=== PATIENT | male | born 1970 | race Caucasian/White ===

== ENCOUNTER 2021-04-20 09:28 | Emergency (ER) | payer OTHER ==
[~2021-04-20] VITALS: Ht 188 cm; Wt 126.2 kg
--- NOTE | 2021-04-20 10:09 | PHYS DOC ---
Past History Past Medical History: No Pertinent History (ISMAEL DUKES APRN) Past Surgical History: No Surgical History (ISMAEL DUKES APRN) Alcohol Use: None (ISMAEL DUKES APRN) General Adult EDM: Chief Complaint: ANKLE PROBLEM HPI: HPI: Patient is a 50-year-old male that presents today with left ankle pain. Patient states prior to arrival patient was climbing down from the top of the roof down to a lower part of the roof and twisted his foot he felt a weird sensation in his left ankle, he then popped it back in place and was brought here from the job site from his employer. Patient states he is unable to bear weight on his foot. Patient states last oral intake was last evening. (ISMAEL DUKES APRN) Review of Systems: Review of Systems: Constitutional: Denies fever or chills Eyes: Denies change in visual acuity HENT: Denies nasal congestion or sore throat Respiratory: Denies cough or shortness of breath Cardiovascular: Denies chest pain or edema GI: Denies abdominal pain, nausea, vomiting, bloody stools or diarrhea : Denies dysuria Musculoskeletal: left ankle pain Integument: Denies rash Neurologic: Denies headache, focal weakness or sensory changes Endocrine: Denies polyuria or polydipsia Lymphatic: Denies swollen glands Psychiatric: Denies depression or anxiety (ISMAEL DUKES APRN) Allergies: Allergies: Allergies Coded Allergies Type Severity Reaction Last Updated Verified No Known Drug Allergies 04/20/21 No (ISMAEL DUKES APRN) Physical Exam: PE: Constitutional: Well developed, well nourished, no acute distress, non-toxic appearance. [] HENT: Normocephalic, atraumatic, bilateral external ears normal, oropharynx moist, no oral exudates, nose normal. [] Eyes: PERRLA, EOMI, conjunctiva normal, no discharge. [] Neck: Normal range of motion, no tenderness, supple, no stridor. [] Cardiovascular:Heart rate regular rhythm, no murmur [] Lungs & Thorax: Bilateral breath sounds clear to auscultation [] Abdomen: Bowel sounds normal, soft, no tenderness, no masses, no pulsatile masses. [] Skin: Warm, dry, no erythema, no rash. [] Back: No tenderness, no CVA tenderness. [] Extremities: Obvious left ankle deformity, DP and PT distal left foot 2+, sensory intact distal to injury and patient able to move toes. Neurologic: Alert and oriented X 3, normal motor function, normal sensory function, no focal deficits noted. [] Psychologic: Affect normal, judgement normal, mood normal. [] (ISMAEL DUKES APRN) PE: Constitutional: Well developed, well nourished, no acute distress, non-toxic appearance HENT: Normocephalic, atraumatic, pharynx clear Eyes: Conjunctiva normal, no discharge Neck: Normal range of motion, supple Lungs & Thorax: No respiratory distress, equal chest rise and fall Skin: Warm, dry, no erythema, no rash Extremities: Left ankle deformity, tenting of skin to medial aspect, DP and PT +2, sensation intact Neurologic: Alert and oriented X 3, no focal deficits noted Psychologic: Affect normal, judgment normal (TRINA NOONAN DO) Current Patient Data: Vital Signs: initial VS: HR 107, 145/107, RR16 (ISMAEL DUKES SIGNING AGENT) EKG: EKG: [] (ISMAEL DUKES APRN) Radiology/Procedures: Radiology/Procedures: PROCEDURE: ANKLE LEFT 3V XR EXAM OF ANKLE_LEFT 3V Clinical indications: Reason: injury, ankle pain/deformity / Spl. Instructions: / History: Findings: There is lateral and posterior dislocation of the talus with respect to the tibia. There is widening of the space between the distal tibia and fibula consistent with disruption of the distal interosseous ligament and anterior/posterior tibiofibular ligaments and disruption of the deltoid ligament. Small intra- articular loose bodies are evident. Otherwise no acute fracture is seen. No lytic process is seen. IMPRESSION: Dislocation of the left ankle with ligament tears. Intra-articular loose bodies are seen but no acute fracture is evident. Electronically signed by: Federico Garland MD (04/20/2021 10:23 AM) [id number][] PROCEDURE: ANKLE LEFT 3V PROCEDURE: ANKLE LEFT 2V Left ankle 3 views. HISTORY: Postreduction ankle dislocation 3 views were taken of the left ankle. Comparison is made with the earlier images. There is persistent lateral subluxation of the talus relative to the tibia. There is also mild posterior subluxation. Positioning is only mildly improved compared to the original images. Ankle is in a splint. IMPRESSION: 1. Mild improvement but persistent lateral subluxation of the talus relative to the tibia. Electronically signed by: Qasim Garcia MD (04/20/2021 1:04 PM) [facility] AP, lateral, and oblique views of the left ankle were obtained. History: Reason: post reduction / Spl. Instructions: / History: Comparison: Plain film from same day. There is new cast artifact. There is widening of the ankle mortise with medial displacement of the tibia, this is decreased when compared with the prior examination.. The fibula relationship of the ankle mortise appears intact. There is subcutaneous swelling. Electronically signed by: Kieran Ward MD (04/20/2021 11:04 AM) [id number] (ISMAEL DUKES APRN) Heart Score: C/O Chest Pain: N/A (ISMAEL DUKES APRN) Course & Med Decision Making: Course & Med Decision Making Pertinent Labs and Imaging studies reviewed. (See chart for details) With obvious ankle deformity and malplacement will arrange for moderate sedation after x-rays are done, Dr. Noonan is notified of findings. Dr. Noonan has attempted to reduce ankle dislocation x2 without success. Spoke to Dr. Chatman, ankle/foot and ankle surgeon, by phone it was recommended that patient be transferred to [facility] to the emergency department for further management of this by Dr. Chatman. Patient is agreeable to plan. Dr. Gerard is the accepting physician in the emergency department. Splint is in place, Neurovascular intact. before and after splint placement (ISMAEL DUKES APRN) Course & Med Decision Making Patient seen and evaluated myself. Patient with ankle dislocation as seen on x-ray without laceration. Limb neurovascular intact. Moderate sedation performed with attempted reduction x2. Patient each time received 100 mcg of Fentanyl and 10mg of Etomidate. Traction manipulation of the ankle performed with some improvement of alignment. A stirrup splint applied and repeat x-rays obtained. X-rays with continued subluxation of tibia on talus. Discussed case with Dr. Chatman (podiatry) who request patient be transferred ER to ER to [facility] where he will evaluate patient and attempt further reductions. Patient will be kept n.p.o. Pain addressed. Patient requiring transfer to ED at [facility]. Discussed with Dr. Gerard (ED at [facility]) who is in agreement with transfer ED to ED. Discussed findings and plan with patient, who acknowledges understanding and agreement. (TRINA NOONAN DO) Dragon Disclaimer: Dragon Disclaimer: This electronic medical record was generated, in whole or in part, using a voice recognition dictation system. (ISMAEL DUKES APRN) Departure Departure: Impression: Primary Impression: Dislocation of ankle, left, closed Qualified Codes: S93.05XA - Dislocation of left ankle joint, initial encounter Disposition: 02 SHORT TERM HOSPITAL Condition: STABLE Referrals: PCP,NO (PCP) SU CHATMAN DPRm Splinting Splinting : Location: [facility] Hand-Made Type: orthoglass Splint: sugar-tong Pre-Proc Neuro Vasc Exam: normal Post-Proc Neuro Vasc Exam: normal, unchanged from pre-exam (TRINA NOONAN DO) Joint Reduction Joint Reduction : Conscious Sedation: Yes Reduction Attempts: 2 (Left ankle) Pre-Procedure NV Exam: Yes Post-Procedure NV Exam: Yes Post Joint Reduction Film: ankle partiallly reduced Progress Written consent obtained. Time out performed. Hand hygiene utilized. Moderate Sedation performed. Cardiac, pulse oximetry, and end tidal CO2 monitoring in place. Sedation achieved after administration of 100mcg of Fentanyl and 10mg Etomidate. Manipulation of left ankle performed with traction and improved alignment. Splint applied. XR obtained with continued widened mortise. 2nd attempt performed with 100mcg of Fentanyl and 10mg Etomidate and 2nd attempt at reduction without improvement. New splint applied. XR with similar findings to 1st reduction. Patient tolerated procedure well and without difficulty. (TRINA NOONAN DO) MODERATE SEDATION ASSESSMENT RISKS/ALTERNATIVES Risks/Alternatives Risks and alternatives of this type of sedation and procedure discussed with: RISK/ALTERNATIVES DISCUSSED: Patient (TRINA NOONAN DO) Risks/Alternatives Risks and alternatives of this type of sedation and procedure discussed with: (ISMAEL DUKES APRN) H & P ON CHART H & P H & P on chart and reviewed for co-morbid conditions and appropriate labs. H&P ON CHART: Yes (TRINA NOONAN DO) H & P H & P on chart and reviewed for co-morbid conditions and appropriate labs. (ISMAEL DUKES APRN) STATUS PREG STATUS ASSESSED: N/A (TRINA NOONAN DO) MEDS/ALLERGIES REVIEWED Meds/Allergies Reviewed Medications and Allergies including time and route of recently administered narcotics and sedatives. MEDS/ALLERGIES REVIEWED: Yes (TRINA NOONAN DO) Meds/Allergies Reviewed Medications and Allergies including time and route of recently administered narcotics and sedatives. (ISMAEL DUKES APRN) ASA RATING ASA RATING: I (TRINA NOONAN DO) AIRWAY ASSESSMENT Airway Assessment Airway patency, oral function limitations, presence of caps, crowns, dentures, partials, and ability to extend neck assessed. AIRWAY ASSESSMENT: Yes (TRINA NOONAN DO) Airway Assessment Airway patency, oral function limitations, presence of caps, crowns, dentures, partials, and ability to extend neck assessed. (ISMAEL DUKES APRN) MALLAMPATI SCORE MALLAMPATI SCORE: III (TRINA NOONAN DO) PRE-SEDATION ASSESSMENT PRE-SEDATION PHYSICAL: Yes (TRINA NOONAN DO) Attending Signature Attending Signature I have personally interviewed and examined the patient. All charts, labs, and imaging studies were reviewed. I agree with the PA/ADMISSIONS CLINICIAN's findings, exam, and plan. (TRINA NOONAN DO) ISMAEL DUKES APRN Apr 20, 2021 10:09 TRINA NOONAN DO Apr 20, 2021 14:56
[2021-04-20] MEDS ORDERED: IV NORMAL SALINE 1,000ML 1,000 ML IV ONE (10:15)
[2021-04-20] MEDS ORDERED: ETOMIDATE 40 MG/20 ML VIAL. INJ ONE ×2 (10:15→11:30)
--- NOTE | 2021-04-20 10:25 | RAD ---
XR EXAM OF ANKLE_LEFT 3V Clinical indications: Reason: injury, ankle pain/deformity / Spl. Instructions: / History: Findings: There is lateral and posterior dislocation of the talus with respect to the tibia. There is widening of the space between the distal tibia and fibula consistent with disruption of the distal interosseous ligament and anterior/posterior tibiofibular ligaments and disruption of the delt oid ligament. Small intra-articular loose bodies are evident. Otherwise no acute fracture is seen. No lytic process is seen. IMPRESSION: Dislocation of the left ankle with ligament tears. Intra-articular loose bodies are seen but no acute fracture is evident. Electronically signed by: Federico Garland MD (04/20/2021 10:23 AM) [id number]
[2021-04-20] MEDS ORDERED: KETOROLAC 15 MG/ML VIAL. IVP ONE (11:00)
--- NOTE | 2021-04-20 11:06 | RAD ---
AP, lateral, and oblique views of the left ankle were obtained. History: Reason: post reduction / Spl. Instructions: / History: Comparison: Plain film from same day. There is new cast artifact. There is widening of the ankle mortise with medial displacement of the ti jose, this is decreased when compared with the prior examination.. The fibula relationship of the ankl e mortise appears intact. There is subcutaneous swelling. Electronically signed by: Kieran Ward MD (04/20/2021 11:04 AM) [id number]
--- NOTE | 2021-04-20 13:06 | RAD ---
Left ankle 3 views. HISTORY: Postreduction ankle dislocation 3 views were taken of the left ankle. Comparison is made with the earlier images. There is persistent lateral subluxation of the talus relative to the tibia. There is also mild posterior subluxation. Po sitioning is only mildly improved compared to the original images. Ankle is in a splint. IMPRESSION: 1. Mild improvement but persistent lateral subluxation of the talus relative to the tibia. Electronically signed by: Qasim Garcia MD (04/20/2021 1:04 PM) [facility]
[2021-04-20 13:25] VITALS: BP 138/96
== END 2021-04-20 15:20 | disposition short-term general hospital (02) ==
LOC: ER 09:28
DX: S93.05XA Dislocation of left ankle joint, initial encounter (principal); X50.9XXA Other and unspecified overexertion or strenuous movements or postures, initial encounter; Y93.89 Activity, other specified; Y92.89 Other specified places as the place of occurrence of the external cause; Y99.8 Other external cause status
CPT/HCPCS: 27840; 73600; 73610; 96361; 96374; 96375; 96376; 99152; 99285; J1885; J3010; J7030